=== PATIENT | female | born 1935 | race African-American/Black ===

== ENCOUNTER 2018-01-19 22:53 | Emergency (ER) | payer OTHER ==
[~2018-01-19] VITALS: Ht 167.6 cm; Wt 50.4 kg
[~2018-01-19 22:53] MED LIST: ASPIRIN81 M2 PO; DITROPAN XL10 MG PO; GLUCOPHAGE XR500 MG PO; HUMALOG100 UNIT/2 SQ; IMODIUM MULTI-1 EACH PO; KEFLEX500 MG PO; LANTUS100 UNIT/M SUBQ; LEVEMIR FL100 UNIT/2 SQ; LEVEMIR100 UNIT/1 SUBQ; LEVOTHYROXIN0.112 M1 PO; LEVOTHYROXINE 0.1 MG PO; LINEZOLID600 MG PO; LOSARTAN POTAS100 MG PO; METFORMIN HCL500 MG PO; NIFEDIPINE ER30 MG PO; NORCO 5-325 TA1 EACH PO; NOVOLOG100 UNIT/1 SUBQ; TYLENOL325 MG PO; VICTOZA0.6 MG/0.1 SUBQ; ZOFRAN4 MG PO
[2018-01-19] MEDS ORDERED: SYNTHROID125 MC1 PO (23:10)
[2018-01-19] MEDS ORDERED: PIOGLITAZONE15 MG (23:11)
[2018-01-20] MEDS ORDERED: NORCO 5-325 TA1 EACH PO (01:19)
== END 2018-01-20 02:08 | disposition home or self-care (01) ==
LOC: ER 22:53
DX: S42.201A Unspecified fracture of upper end of right humerus, initial encounter for closed fracture (principal); S52.501A Unspecified fracture of the lower end of right radius, initial encounter for closed fracture; E11.9 Type 2 diabetes mellitus without complications; I10 Essential (primary) hypertension; W18.39XA Other fall on same level, initial encounter; Y92.89 Other specified places as the place of occurrence of the external cause; Y93.89 Activity, other specified; Y99.8 Other external cause status

== ENCOUNTER → 2019-08-26 | Outpatient (CLI) | payer OTHER ==
[~2019-08-26] MED LIST changes: +PIOGLITAZONE15 MG; +SYNTHROID125 MC1 PO
== END ==
LOC: HYPER 09:24
DX: E11.621 Type 2 diabetes mellitus with foot ulcer (principal); L89.623 Pressure ulcer of left heel, stage 3; L97.421 Non-pressure chronic ulcer of left heel and midfoot limited to breakdown of skin; L84 Corns and callosities; E11.39 Type 2 diabetes mellitus with other diabetic ophthalmic complication; E11.319 Type 2 diabetes mellitus with unspecified diabetic retinopathy without macular edema; G30.9 Alzheimer's disease, unspecified; E07.89 Other specified disorders of thyroid; I10 Essential (primary) hypertension; R53.81 Other malaise; M19.90 Unspecified osteoarthritis, unspecified site; F02.80 Dementia in other diseases classified elsewhere, unspecified severity, without behavioral disturbance, psychotic disturbance, mood disturbance, and anxiety; F41.8 Other specified anxiety disorders; F32.9 Major depressive disorder, single episode, unspecified; Z87.891 Personal history of nicotine dependence; Z79.4 Long term (current) use of insulin; Z79.84 Long term (current) use of oral hypoglycemic drugs; Z98.49 Cataract extraction status, unspecified eye

== ENCOUNTER → 2019-09-09 | Outpatient (CLI) | payer OTHER | LOC: HYPER 08:06 | DX: E11.621 Type 2 diabetes mellitus with foot ulcer (principal); L89.623 Pressure ulcer of left heel, stage 3; L97.421 Non-pressure chronic ulcer of left heel and midfoot limited to breakdown of skin; L03.032 Cellulitis of left toe; L84 Corns and callosities; E11.319 Type 2 diabetes mellitus with unspecified diabetic retinopathy without macular edema; E07.89 Other specified disorders of thyroid; G30.9 Alzheimer's disease, unspecified; I10 Essential (primary) hypertension; R53.81 Other malaise; M19.90 Unspecified osteoarthritis, unspecified site; F32.9 Major depressive disorder, single episode, unspecified; F41.8 Other specified anxiety disorders; F02.80 Dementia in other diseases classified elsewhere, unspecified severity, without behavioral disturbance, psychotic disturbance, mood disturbance, and anxiety; Z87.891 Personal history of nicotine dependence; Z79.4 Long term (current) use of insulin; Z79.84 Long term (current) use of oral hypoglycemic drugs ==